=== PATIENT | female | born 1930 | race Caucasian/White ===

== ENCOUNTER → 2018-04-06 | Emergency (ER) | payer MEDICARE, OTHER ==
[~2018-04-06] VITALS: Ht 565.3 cm; Wt 59.0 kg
[~2018-04-06] MED LIST: ALEN40TA2 PO; LISI-600 PO; SIMV5TAB2 PO; SYN0.088T PO; TRIA1TAB5 PO; acetaminophen 325mg tablet PO STA; ibuprofen tablet 400 MG TABLET PO STA
[2018-04-06 13:30] VITALS: BP 144/57
== END | disposition home or self-care (01) ==
LOC: ER 13:27 → EDSEX 13:27
DX: M79.604 Pain in right leg (principal); M25.552 Pain in left hip; M25.551 Pain in right hip; W18.39XA Other fall on same level, initial encounter; Y93.89 Activity, other specified; Y92.89 Other specified places as the place of occurrence of the external cause; Y99.8 Other external cause status
CPT/HCPCS: 72170; 99284

== ENCOUNTER → 2018-04-07 | Emergency (ER) | payer MEDICARE ==
[~2018-04-07] VITALS: Ht 160 cm; Wt 59.0 kg
[~2018-04-07] MED LIST changes: -acetaminophen 325mg tablet PO STA; -ibuprofen tablet 400 MG TABLET PO STA; +ondansetron/PF 4mg/2ml inj IM ONE; +traMADol 50MG tablet PO ONE
[2018-04-07 12:40] LABS: BASOPHILS % (AUTO) 0.3 % (0-1); EOSINOPHILS # (AUTO) 0.1 X10'3 (0-0.9); EOSINOPHILS % (AUTO) 0.5 % (0-6); HEMATOCRIT 33.8 % (35.0-45.0); HEMOGLOBIN 11.7 g/dl (12.0-16.0); LYMPHOCYTES # (AUTO) 1.6 X10'3 (1.1-4.8); LYMPHOCYTES % (AUTO) 11.3 % (21-51); MEAN CORPUSCULAR HEMOGLOBIN 32.6 PG (27.0-31.0); MEAN CORPUSCULAR HGB CONC 34.6 % (33.0-36.5); MEAN CORPUSCULAR VOLUME 94.3 FL (78-98); MONOCYTES # (AUTO) 1.2 X10'3 (0-0.9); MONOCYTES % (AUTO) 8.4 % (2-12); NEUTROPHILS # (AUTO) 11.1 X10'3 (1.8-7.7); NEUTROPHILS % (AUTO) 79.5 % (42-75); PLATELET COUNT 355 X10'3 (140-440); RED BLOOD COUNT 3.59 X10'6 (4.20-5.60); RED CELL DISTRIBUTION WIDTH 13.4 % (11.5-14.5)
[2018-04-07 12:51] LABS: ALANINE AMINOTRANSFERASE 34 U/L (12-78); ALBUMIN 3.5 G/DL (3.4-5.0); ALBUMIN/GLOBULIN RATIO 0.9 (1.1-1.5); ALKALINE PHOSPHATASE 62 IU/L (46-116); ANION GAP 8 (8-16); ASPARTATE AMINO TRANSFERASE 22 U/L (10-37); BILIRUBIN,TOTAL 0.9 MG/DL (0.1-1.0); BLOOD UREA NITROGEN 28 MG/DL (7-18); BUN/CREATININE RATIO 21.1 (6.6-38.0); CALCIUM 11.1 MG/DL (8.5-10.1); CHLORIDE 93 MMOL/L (99-107); CREATININE 1.33 MG/DL (0.40-0.90); GLUCOSE 104 MG/DL (70-104); POTASSIUM 3.8 MMOL/L (3.5-5.1); SODIUM 131 MMOL/L (135-145); TOTAL CARBON DIOXIDE 29.7 MMOL/L (24-32); TOTAL PROTEIN 7.2 G/DL (6.4-8.2); eGFR 38 ML/MIN
[2018-04-07 14:04] LABS: CLARITY,URINE SLIGHTLY CLOUDY (Clear); COLOR,URINE YELLOW (Yellow); GLUCOSE, URINE NEGATIVE (Neg); KETONES,URINE NEGATIVE (Neg); LEUKOCYTE ESTERASE ,URINE NEGATIVE (Neg); NITRITES, URINE NEGATIVE (Neg); OCCULT BLOOD,URINE NEGATIVE (Neg); PROTEIN,URINE NEGATIVE (Neg); UROBILINOGEN,URINE 0.2 E.U/dL (0.2-1.0)
[2018-04-07 14:07] LABS: UA COLLECTION TYPE FOLEY CATH
[2018-04-07 14:36] LABS: AMORPHOUS PHOSPHATES 1+; BACTERIA,URINE NONE SEEN /HPF (Neg); RBC,URINE 0-2 /HPF (0-2); SQUAMOUS EPITHELIAL CELL,UR FEW /LPF (FEW); TRANSITIONAL EPI CELLS,URINE FEW /HPF; WBC,URINE 0-4 /HPF (0-4)
[2018-04-07 17:04] VITALS: BP 140/73
== END | disposition short-term general hospital (02) ==
LOC: ER 10:55
DX: S32.502A Unspecified fracture of left pubis, initial encounter for closed fracture (principal); Z60.2 Problems related to living alone; W18.30XA Fall on same level, unspecified, initial encounter; Y93.89 Activity, other specified; Y92.89 Other specified places as the place of occurrence of the external cause; Y99.8 Other external cause status
CPT/HCPCS: 36415; 51702; 72192; 80053; 81001; 85025; 87070; 96372; 99285; A4315; J2405

== ENCOUNTER 2019-02-22 10:10 | Emergency (ER) | payer MEDICARE ==
[~2019-02-22] VITALS: Ht 160 cm; Wt 74.0 kg
[~2019-02-22 10:10] MED LIST changes: -ondansetron/PF 4mg/2ml inj IM ONE; -traMADol 50MG tablet PO ONE
[2019-02-22 12:02] VITALS: BP 166/78
[2019-02-22] MEDS ORDERED: TRAM50TA2 PO (16:22)
== END 2019-02-22 12:03 | disposition home or self-care (01) ==
LOC: ER 10:10
DX: S40.012A Contusion of left shoulder, initial encounter (principal); M25.552 Pain in left hip; Z98.890 Other specified postprocedural states; Z79.899 Other long term (current) drug therapy; W18.49XA Other slipping, tripping and stumbling without falling, initial encounter; Y93.89 Activity, other specified; Y92.89 Other specified places as the place of occurrence of the external cause; Y99.9 Unspecified external cause status
CPT/HCPCS: 72170; 73030; 99284

== ENCOUNTER 2019-02-22 15:07 | Emergency (ER) | payer MEDICARE ==
[~2019-02-22] VITALS: Ht 160 cm; Wt 74.0 kg
[2019-02-22 15:58] LABS: BASOPHILS % (AUTO) 0.4 % (0-1); EOSINOPHILS # (AUTO) 0.2 X10'3 (0-0.9); EOSINOPHILS % (AUTO) 1.5 % (0-6); HEMATOCRIT 36.9 % (35.0-45.0); HEMOGLOBIN 12.6 g/dl (12.0-16.0); LYMPHOCYTES % (AUTO) 8.8 % (21-51); MEAN CORPUSCULAR HEMOGLOBIN 31.3 PG (27.0-31.0); MEAN CORPUSCULAR HGB CONC 34.3 g/dL (33.0-36.5); MEAN CORPUSCULAR VOLUME 91.4 FL (78-98); MEAN PLATELET VOLUME 6.2 FL (7.4-10.4); MONOCYTES # (AUTO) 1.4 X10'3 (0-0.9); MONOCYTES % (AUTO) 12.7 % (2-12); NEUTROPHILS # (AUTO) 8.7 X10'3 (1.8-7.7); NEUTROPHILS % (AUTO) 76.6 % (42-75); PLATELET COUNT 351 X10'3 (140-440); RED BLOOD COUNT 4.03 X10'6 (4.20-5.60); RED CELL DISTRIBUTION WIDTH 13.5 % (11.5-14.5); WHITE BLOOD COUNT 11.4 X10'3 (4.5-11.0)
[2019-02-22 16:08] LABS: ALANINE AMINOTRANSFERASE 21 U/L (12-78); ALBUMIN 3.4 G/DL (3.4-5.0); ALBUMIN/GLOBULIN RATIO 0.9 (1.1-1.5); ALKALINE PHOSPHATASE 66 IU/L (46-116); ANION GAP 8 (8-16); ASPARTATE AMINO TRANSFERASE 19 U/L (10-37); BILIRUBIN,TOTAL 0.6 MG/DL (0.1-1.0); BLOOD UREA NITROGEN 13 MG/DL (7-18); BUN/CREATININE RATIO 17.6 (6.6-38.0); CALCIUM 9.7 MG/DL (8.5-10.1); CHLORIDE 92 MMOL/L (99-107); CREATININE 0.74 MG/DL (0.40-0.90); GLUCOSE 97 MG/DL (70-104); POTASSIUM 3.3 MMOL/L (3.5-5.1); SODIUM 129 MMOL/L (135-145); TOTAL CARBON DIOXIDE 28.8 MMOL/L (24-32); TOTAL PROTEIN 7.1 G/DL (6.4-8.2); eGFR 74 ML/MIN
[2019-02-22] MEDS ORDERED: normal saline 1000ML IV soln IVB ONE (16:15)
[2019-02-22] MEDS ORDERED: TRAM50TA2 PO (16:22)
[2019-02-22 16:36] LABS: CLARITY,URINE CLEAR (Clear); COLOR,URINE YELLOW (Yellow); GLUCOSE, URINE NEGATIVE (Neg); KETONES,URINE NEGATIVE (Neg); LEUKOCYTE ESTERASE ,URINE NEGATIVE (Neg); NITRITES, URINE NEGATIVE (Neg); OCCULT BLOOD,URINE TRACE-LYSED (Neg); PROTEIN,URINE NEGATIVE (Neg); UROBILINOGEN,URINE 0.2 E.U/dL (0.2-1.0)
[2019-02-22 16:37] LABS: UA COLLECTION TYPE STRAIGHT CATH
[2019-02-22 16:43] LABS: BACTERIA,URINE NONE SEEN /HPF (Neg); MUCUS STRANDS FEW /LPF (Neg); RBC,URINE 0-2 /HPF (0-2); SQUAMOUS EPITHELIAL CELL,UR NONE SEEN /LPF (FEW); WBC,URINE NONE SEEN /HPF (0-4)
--- NOTE | 2019-02-22 16:50 | NUR ---
PT'S DAUGHTER AT BEDSIDE
--- NOTE | 2019-02-22 18:15 | NUR ---
PT DISCHARGED VIA W/C WITH DAUGHTER, ASSISTED TO WAITING CAR. PT TO FOLLOW UP WITH HER PMD, HOME WITH RX FOR PAIN MEDS
[2019-02-22 18:37] VITALS: BP 149/68
== END 2019-02-22 18:39 | disposition home or self-care (01) ==
LOC: ER 15:07
DX: S22.089A Unspecified fracture of T11-T12 vertebra, initial encounter for closed fracture (principal); W18.30XA Fall on same level, unspecified, initial encounter; Y93.89 Activity, other specified; Y92.89 Other specified places as the place of occurrence of the external cause; Y99.8 Other external cause status
CPT/HCPCS: 36415; 70450; 72131; 80053; 81001; 85025; 96360; 96361; 99284; J7030; P9612

== ENCOUNTER 2019-06-28 11:43 | Emergency (ER) | payer MEDICARE ==
[~2019-06-28] VITALS: Ht 157.5 cm; Wt 59.1 kg
--- NOTE | 2019-06-28 12:02 | NUR ---
DR CHANG EVALUATED PT AND WILL CT SCAN HEAD AND NECK
[2019-06-28 13:39] VITALS: BP 116/55
== END 2019-06-28 13:42 | disposition home or self-care (01) ==
LOC: ER 11:44
DX: S00.03XA Contusion of scalp, initial encounter (principal); M54.2 Cervicalgia; F03.90 Unspecified dementia, unspecified severity, without behavioral disturbance, psychotic disturbance, mood disturbance, and anxiety; Z98.890 Other specified postprocedural states; Z88.6 Allergy status to analgesic agent; Z88.5 Allergy status to narcotic agent; Z79.899 Other long term (current) drug therapy; W18.39XA Other fall on same level, initial encounter; Y93.89 Activity, other specified; Y92.89 Other specified places as the place of occurrence of the external cause; Y99.8 Other external cause status
CPT/HCPCS: 70450; 72125; 99284

== ENCOUNTER 2019-07-08 11:07 | Inpatient (IN) | payer MEDICARE ==
[~2019-07-08] VITALS: Ht 167.6 cm; Wt 59.0 kg
[2019-07-08] MEDS ORDERED: normal saline 1000ML IV soln IVB ONE (11:50)
[2019-07-08] MEDS ORDERED: ondansetron/PF 4mg/2ml inj IV ONE (11:50)
[2019-07-08 12:23] LABS: CLARITY,URINE CLEAR (Clear); COLOR,URINE YELLOW (Yellow); GLUCOSE, URINE NEGATIVE (Neg); KETONES,URINE NEGATIVE (Neg); LEUKOCYTE ESTERASE ,URINE NEGATIVE (Neg); NITRITES, URINE NEGATIVE (Neg); OCCULT BLOOD,URINE NEGATIVE (Neg); PH,URINE 6.5 (4.8-8.0); PROTEIN,URINE NEGATIVE (Neg); UROBILINOGEN,URINE 0.2 E.U/dL (0.2-1.0)
[2019-07-08 12:24] LABS: UA COLLECTION TYPE STRAIGHT CATH
[2019-07-08 12:25] LABS: BASOPHILS % (AUTO) 0.3 % (0-1); EOSINOPHILS # (AUTO) 0.3 X10'3 (0-0.9); EOSINOPHILS % (AUTO) 2.6 % (0-6); HEMATOCRIT 35.8 % (35.0-45.0); HEMOGLOBIN 11.9 g/dl (12.0-16.0); LYMPHOCYTES # (AUTO) 1.1 X10'3 (1.1-4.8); LYMPHOCYTES % (AUTO) 8.6 % (21-51); MEAN CORPUSCULAR HEMOGLOBIN 30.6 PG (27.0-31.0); MEAN CORPUSCULAR HGB CONC 33.3 g/dL (33.0-36.5); MEAN CORPUSCULAR VOLUME 91.8 FL (78-98); MEAN PLATELET VOLUME 6.4 FL (7.4-10.4); MONOCYTES # (AUTO) 1.4 X10'3 (0-0.9); MONOCYTES % (AUTO) 11.3 % (2-12); NEUTROPHILS # (AUTO) 9.9 X10'3 (1.8-7.7); NEUTROPHILS % (AUTO) 77.2 % (42-75); PLATELET COUNT 358 X10'3 (140-440); RED BLOOD COUNT 3.89 X10'6 (4.20-5.60); RED CELL DISTRIBUTION WIDTH 14.3 % (11.5-14.5); WHITE BLOOD COUNT 12.8 X10'3 (4.5-11.0)
[2019-07-08] MEDS ORDERED: CefTRIAXone 2gm/D5W 50ml 50 ML IV ONE (12:30)
[2019-07-08 12:35] LABS: ALANINE AMINOTRANSFERASE 15 U/L (12-78); ALBUMIN 2.5 G/DL (3.4-5.0); ALBUMIN/GLOBULIN RATIO 0.6 (1.1-1.5); ALKALINE PHOSPHATASE 70 IU/L (46-116); ANION GAP 11 (8-16); ASPARTATE AMINO TRANSFERASE 15 U/L (10-37); BILIRUBIN,TOTAL 0.4 MG/DL (0.1-1.0); BLOOD UREA NITROGEN 68 MG/DL (7-18); BUN/CREATININE RATIO 27.4 (6.6-38.0); CALCIUM 8.2 MG/DL (8.5-10.1); CHLORIDE 101 MMOL/L (99-107); CREATININE 2.48 MG/DL (0.40-0.90); GLUCOSE 73 MG/DL (70-104); LIPASE 277 U/L (73-393); SODIUM 142 MMOL/L (135-145); TOTAL CARBON DIOXIDE 29.8 MMOL/L (24-32); TOTAL PROTEIN 6.5 G/DL (6.4-8.2); eGFR 18 ML/MIN
[2019-07-08] MEDS ORDERED: potassium Cl 10 mEq/100mL bag IV ONE (13:55)
[2019-07-08] MEDS ORDERED: mag hydrox/Alum hydrox/simeth 30ml oral suspension PO PRN (14:10)
[2019-07-08] MEDS ORDERED: diphenhydrAMINE 50 mg/ml inj IV PRN (14:10)
[2019-07-08] MEDS ORDERED: potassium Cl 20 mEq SR tablet PO PRN (14:10)
[2019-07-08] MEDS: K and/or MAG REPLACEMENT MC SCH (14:10)
[2019-07-08] MEDS ORDERED: magnesium hydroxide 30ml (MOM) UD suspension PO PRN (14:10)
[2019-07-08] MEDS ORDERED: magnesium Cl slow-release 64mg tablet PO PRN (14:10)
[2019-07-08] MEDS ORDERED: metoclopramide 5 mg/ml inj IV PRN (14:10)
[2019-07-08] MEDS ORDERED: bisacodyl 10mg suppository rectal RC PRN (14:10)
[2019-07-08] MEDS ORDERED: diphenhydrAMINE 25mg capsule PO PRN (14:10)
[2019-07-08] MEDS ORDERED: ondansetron/PF 4mg/2ml inj IV PRN (14:10)
[2019-07-08] MEDS ORDERED: magnesium 2GM in 50ml NS 50 ML IV PRN (14:10)
[2019-07-08] MEDS ORDERED: magnesium 4gm in 100ml NS 100 ML IV PRN (14:10)
[2019-07-08] MEDS ORDERED: OMEP-50 PO (14:13)
[2019-07-08] MEDS ORDERED: FURO20TA4 PO (14:13)
[2019-07-08] MEDS ORDERED: LEVO75TA7 PO (14:13)
--- NOTE | 2019-07-08 14:15 | NUR ---
assumed care of pt from Marichuy JUAREZ, first contact with pt, pt is up to bedside commode with min assist,
[2019-07-08] MEDS ORDERED: SERT100T10 PO (14:19)
[2019-07-08] MEDS ORDERED: CHOL100046 PO (14:19)
[2019-07-08] MEDS ORDERED: TRIA1TAB3 PO (14:19)
[2019-07-08] MEDS ORDERED: POTA20LI5 PO (14:19)
[2019-07-08] MEDS ORDERED: SENN-162 PO (14:19)
[2019-07-08] MEDS ORDERED: MULT-933 PO (14:19)
[2019-07-08] MEDS ORDERED: DOCU100C41 PO (14:19)
[2019-07-08] MEDS ORDERED: TRAM50TA2 PO (14:19)
[2019-07-08] MEDS ORDERED: traMADol 50MG tablet PO PRN (14:25)
[2019-07-08] MEDS: normal saline 1000ml 1,000 ML IV SCH ×2 (14:28→23:35)
[2019-07-08] MEDS: potassium Cl 20 mEq SR tablet PO ONE ×2 (14:28→14:57)
--- NOTE | 2019-07-08 14:41 | NUR ---
per daughter pt is has difficulty swallowing and now needs to take potassium liquid, unable to swallow pills,
--- NOTE | 2019-07-08 15:05 | NUR ---
pt had small soft brown/yellow bowel movement and yellow urine, 800ml, out, no skin breakdown to back/coccyx, assisted pt back to bed, gave pt clean depends and warm blanket
[2019-07-08 15:16] LABS: HEMOGLOBIN A1C 5.9 % (4.5-6.2)
--- NOTE | 2019-07-08 17:37 | NUR ---
Pt.'s daughter said pt. tried to have a bowel movement in the ER this AM and was unable to. she strained for some time. Pt. c/o lower abd. pain on palpation. Addendum: 07/08/19 at 1742 by Mellsia Lezama RN Amended: Links added.
[2019-07-08 17:42] VITALS: BP 121/42
--- NOTE | 2019-07-08 17:48 | NUR ---
PAGER ID: [phone] MESSAGE: [id number] Nikia Juarez Pt. daughter states pt. is have troubles swallowing. Do you want pt NPO for BSS/ST eval? Pt also states constipation. med. req. needs to be addressed. Thank you - surgical
--- NOTE | 2019-07-08 18:30 | NUR ---
Pt. in bed, comfortable with no needs at this time. c/o being cold, heater turned on, several blankets provided. Fall risk r/t pt. fell last week at [facility]. CNAs aware to transfer pt. to bed alarm bed. Report given to Susana Urban RN oriented.
[2019-07-08 20:00] VITALS: BP 105/51
[2019-07-08] MEDS: docusate sod 100mg capsule PO SCH (21:00)
[2019-07-08] MEDS: sennosides 8.6mg tablet PO SCH (21:00)
[2019-07-08] MEDS ORDERED: temazepam 15mg capsule PO PRN (21:00)
[2019-07-08] MEDS: potassium CL 10mEq/100ml bag 100 ML IV PRN ×3 (21:29→23:36)
[2019-07-08] MEDS: heparin, porcine 5000 units/ml vial SQ SCH (21:32)
[2019-07-09] VITALS: BP 118/55
--- NOTE | 2019-07-09 00:22 | NUR ---
Patient continues to complain of having to go pee. Patient has gotten up 4 times with assistance, unsuccessful. Patient bladder scan show 540ml in bladder. Dr. Mac order X1 straight cath now.
--- NOTE | 2019-07-09 01:30 | NUR ---
Dr. Regalado notified of patient's unsuccessful straight cath attempts of 4 times by Primary nurse Susana RN, Experienced nurse Bhavya RN, and Charge nurse. Patient was able to void during straight cath on to the dry flow 2 times. Patient bladder scan show 540ml and Sabine was notified of the residual in bladder. Sabine does not recommend a coude. Is aware of the residual. For nurse to continue to monitor bladder. No additional order received, stated it might resolve later in the day.
[2019-07-09] MEDS: potassium CL 10mEq/100ml bag 100 ML IV PRN ×6 (01:54→15:45)
--- NOTE | 2019-07-09 03:50 | NUR ---
Patient bladder scan again to recheck, Patient voiding frequently. Bladder scan show 570ml. Continue with care and to monitor.
--- NOTE | 2019-07-09 04:54 | NUR ---
Patient had another large incontinent void.
[2019-07-09 05:35] LABS: BASOPHILS # (AUTO) 0.1 X10'3 (0-0.2); BASOPHILS % (AUTO) 0.8 % (0-1); EOSINOPHILS # (AUTO) 0.5 X10'3 (0-0.9); EOSINOPHILS % (AUTO) 3.8 % (0-6); HEMATOCRIT 34.4 % (35.0-45.0); HEMOGLOBIN 11.7 g/dl (12.0-16.0); LYMPHOCYTES # (AUTO) 1.2 X10'3 (1.1-4.8); LYMPHOCYTES % (AUTO) 9.9 % (21-51); MEAN CORPUSCULAR HEMOGLOBIN 30.8 PG (27.0-31.0); MEAN CORPUSCULAR HGB CONC 33.9 g/dL (33.0-36.5); MEAN PLATELET VOLUME 7.1 FL (7.4-10.4); MONOCYTES # (AUTO) 1.3 X10'3 (0-0.9); MONOCYTES % (AUTO) 10.4 % (2-12); NEUTROPHILS # (AUTO) 9.4 X10'3 (1.8-7.7); NEUTROPHILS % (AUTO) 75.1 % (42-75); PLATELET COUNT 366 X10'3 (140-440); RED BLOOD COUNT 3.78 X10'6 (4.20-5.60); RED CELL DISTRIBUTION WIDTH 14.3 % (11.5-14.5); WHITE BLOOD COUNT 12.5 X10'3 (4.5-11.0)
[2019-07-09 05:57] LABS: ALANINE AMINOTRANSFERASE 17 U/L (12-78); ALBUMIN 2.6 G/DL (3.4-5.0); ALBUMIN/GLOBULIN RATIO 0.7 (1.1-1.5); ALKALINE PHOSPHATASE 72 IU/L (46-116); ANION GAP 11 (8-16); ASPARTATE AMINO TRANSFERASE 27 U/L (10-37); BILIRUBIN,TOTAL 0.4 MG/DL (0.1-1.0); BLOOD UREA NITROGEN 56 MG/DL (7-18); BUN/CREATININE RATIO 26.3 (6.6-38.0); CALCIUM 8.6 MG/DL (8.5-10.1); CHLORIDE 102 MMOL/L (99-107); CREATININE 2.13 MG/DL (0.40-0.90); GLUCOSE 83 MG/DL (70-104); MAGNESIUM 1.9 MG/DL (1.5-2.4); PHOSPHORUS 2.7 MG/DL (2.3-4.5); SODIUM 139 MMOL/L (135-145); TOTAL CARBON DIOXIDE 26.5 MMOL/L (24-32); TOTAL PROTEIN 6.6 G/DL (6.4-8.2); eGFR 22 ML/MIN
[2019-07-09 05:58] LABS: POTASSIUM 3.3 MMOL/L (3.5-5.1)
[2019-07-09] MEDS: normal saline 1000ml 1,000 ML IV SCH ×3 (06:10→18:32)
--- NOTE | 2019-07-09 07:05 | NUR ---
Patient in room [facility] 357. I have received report from LARRY Meza and had the opportunity to ask questions and assume patient care.
--- NOTE | 2019-07-09 07:05 | NUR ---
Patient had unwitnessed fall, heard pt yell and walked into room to see patient on floor laying on right side. PCT reported pt was placed on commode at 0700. Patients roommate stated she got off commode and started walking towards the bathroom and then fell. Patient stated, "I dont feel any pain or injuries anywhere," when asked. Patient reported she did hit her head on the floor. Assisted patient back to bed and assessed patient for injuries. No injuries seen. VS stable. Patient had nonskid socks present and fall risk band on prior to fall. Patient currently has PT eval ordered. Charge nurse notified. Will page regarding fall.
--- NOTE | 2019-07-09 07:45 | NUR ---
Paged Dr. Olvera regarding urinary retention bladder scan of 568ml and fall. Awaiting call back.
[2019-07-09 07:59] VITALS: BP 123/51
[2019-07-09] MEDS: heparin, porcine 5000 units/ml vial SQ SCH ×2 (08:00→20:09)
[2019-07-09] MEDS: K and/or MAG REPLACEMENT MC SCH (08:00)
[2019-07-09] MEDS: sertraline 50mg tablet PO SCH (08:00)
[2019-07-09] MEDS: vitamin D (cholecalciferol) 1,000 unit tablet PO SCH (08:00)
[2019-07-09] MEDS: multivitamins, therapeutics tablet PO SCH (08:00)
[2019-07-09] MEDS: levoTHYROXINE 75mcg tablet PO SCH (08:00)
[2019-07-09 08:01] VITALS: BP 113/51
--- NOTE | 2019-07-09 08:25 | NUR ---
Dr. Olvera paged again regarding urinary retention and fall. Awaiting call back.
--- NOTE | 2019-07-09 08:30 | NUR ---
MD aware of fall and urinary retention, MD ordered CT of head and miller per protocol for retention.
--- NOTE | 2019-07-09 09:00 | NUR ---
Attempted to place F/C and pt is refusing at this time. Explained importance of F/C and pt is still refusing. Pt also refusing to get in w/c to go for CT.
--- NOTE | 2019-07-09 09:33 | NUR ---
Patient daughter Fina made aware of pts fall and was updated on pts information. Fina stated she is coming by later with medication list and POA paperwork.
--- NOTE | 2019-07-09 09:44 | NUR ---
paged regarding pt refusing F/C and CT. Awaiting callback.
[2019-07-09] MEDS ORDERED: LORazepam 2 mg/ml vial IV ONE ×2 (09:45→10:25)
--- NOTE | 2019-07-09 10:45 | NUR ---
16 Persian Young catheter placed by student nurse Geetha without incidence. Clinical instructor present with both primary RNs assisting at bedside. Tubing secured to leg, draining to gravity. Patient tolerated procedure well. Urine output 600ml after insertion. Will continue to monitor.
--- NOTE | 2019-07-09 12:12 | NUR ---
Page about CT results awaiting call back
[2019-07-09 12:21] VITALS: BP 112/60
[2019-07-09 17:15] LABS: TOTAL PROTEIN,URINE RANDOM 22.4 MG/DL
--- NOTE | 2019-07-09 18:30 | NUR ---
Patient in room [facility] 358. I have received report from Fadi JUAREZ and had the opportunity to ask questions and assume patient care.
--- NOTE | 2019-07-09 18:39 | NUR ---
Problems reprioritized. Patient report given, questions answered & plan of care reviewed with LARRY DIOP.
[2019-07-09 19:00] VITALS: BP 121/66
[2019-07-09] MEDS: docusate sod 100mg capsule PO SCH (20:09)
[2019-07-09] MEDS: sennosides 8.6mg tablet PO SCH (20:09)
[2019-07-10] VITALS: BP 101/67
[2019-07-10] MEDS: normal saline 1000ml 1,000 ML IV SCH ×2 (02:06→14:48)
--- NOTE | 2019-07-10 04:17 | NUR ---
Patient self-removed IV 2x this shift. The first removal, 2x nurses got IV in after 3x attempts. The second removal, 3x nurses got IV after 5x attempts. Patient is monitored closely with sleeve on arm.
--- NOTE | 2019-07-10 06:35 | NUR ---
Problems reprioritized. Patient report given, questions answered & plan of care reviewed with Mellisa gonzales.
[2019-07-10 07:30] LABS: BASOPHILS # (AUTO) 0.1 X10'3 (0-0.2); BASOPHILS % (AUTO) 0.7 % (0-1); EOSINOPHILS # (AUTO) 0.6 X10'3 (0-0.9); EOSINOPHILS % (AUTO) 4.9 % (0-6); HEMATOCRIT 34.8 % (35.0-45.0); HEMOGLOBIN 11.8 g/dl (12.0-16.0); LYMPHOCYTES # (AUTO) 1.2 X10'3 (1.1-4.8); LYMPHOCYTES % (AUTO) 10.2 % (21-51); MEAN CORPUSCULAR HEMOGLOBIN 31.2 PG (27.0-31.0); MEAN CORPUSCULAR HGB CONC 34.1 g/dL (33.0-36.5); MEAN CORPUSCULAR VOLUME 91.5 FL (78-98); MEAN PLATELET VOLUME 7.2 FL (7.4-10.4); MONOCYTES # (AUTO) 1.1 X10'3 (0-0.9); NEUTROPHILS # (AUTO) 8.9 X10'3 (1.8-7.7); NEUTROPHILS % (AUTO) 75.2 % (42-75); PLATELET COUNT 348 X10'3 (140-440); RED CELL DISTRIBUTION WIDTH 14.5 % (11.5-14.5); WHITE BLOOD COUNT 11.8 X10'3 (4.5-11.0)
[2019-07-10 07:48] LABS: ALANINE AMINOTRANSFERASE 19 U/L (12-78); ALBUMIN 2.5 G/DL (3.4-5.0); ALBUMIN/GLOBULIN RATIO 0.6 (1.1-1.5); ALKALINE PHOSPHATASE 70 IU/L (46-116); ANION GAP 12 (8-16); ASPARTATE AMINO TRANSFERASE 23 U/L (10-37); BILIRUBIN,TOTAL 0.5 MG/DL (0.1-1.0); BLOOD UREA NITROGEN 39 MG/DL (7-18); BUN/CREATININE RATIO 24.1 (6.6-38.0); CALCIUM 8.9 MG/DL (8.5-10.1); CHLORIDE 104 MMOL/L (99-107); CREATININE 1.62 MG/DL (0.40-0.90); GLUCOSE 67 MG/DL (70-104); MAGNESIUM 1.8 MG/DL (1.5-2.4); PHOSPHORUS 3.1 MG/DL (2.3-4.5); SODIUM 142 MMOL/L (135-145); TOTAL CARBON DIOXIDE 25.8 MMOL/L (24-32); TOTAL PROTEIN 6.5 G/DL (6.4-8.2); eGFR 30 ML/MIN
[2019-07-10 07:52] LABS: POTASSIUM 2.7 MMOL/L (3.5-5.1)
--- NOTE | 2019-07-10 07:52 | NUR ---
Notified Fina Azul RN (break relief RN for LARRY Pak) of pt's K+= 2.7, per lab.
--- NOTE | 2019-07-10 08:32 | NUR ---
MD ESPARZA NOTIFIED R/T CRITICAL POTASSIUM LAB BY CHARGE LIOR. WILL REPLACE PER ORDER/PROTOCOL.
[2019-07-10] MEDS: K and/or MAG REPLACEMENT MC SCH (08:35)
[2019-07-10] MEDS: sertraline 50mg tablet PO SCH (08:36)
[2019-07-10] MEDS: vitamin D (cholecalciferol) 1,000 unit tablet PO SCH (08:37)
[2019-07-10] MEDS: heparin, porcine 5000 units/ml vial SQ SCH ×2 (08:37→19:12)
[2019-07-10] MEDS: levoTHYROXINE 75mcg tablet PO SCH (08:37)
[2019-07-10] MEDS: multivitamins, therapeutics tablet PO SCH (08:37)
[2019-07-10] MEDS: potassium Cl 20 mEq SR tablet PO PRN ×3 (08:38→19:12)
[2019-07-10 10:09] VITALS: BP 126/61
[2019-07-10 11:56] VITALS: BP 104/55
--- NOTE | 2019-07-10 12:00 | NUR ---
PT F/C REMOVED PER ORDER. PT. TOLERATED PROCEDURE WELL. WILL CONT. TO MONITOR BOWEL AND BLADDER HABITS ON MY SHIFT.
--- NOTE | 2019-07-10 14:40 | NUR ---
NO VOID AT THIS TIME. PT. BLADDER SCANNED- 165 ML FOUND.
--- NOTE | 2019-07-10 16:24 | NUR ---
Bladder scanned pt. 287ml in bladder. ACCOUNT SERVICE ASSOCIATE in room attempting to have pt. urinate on bedside commode. Will cont. to monitor on my shift.
--- NOTE | 2019-07-10 17:51 | NUR ---
RES. VOID SCAN AFTER 150 ML VOID. 91 ML RESIDUAL IN BLADDER.
--- NOTE | 2019-07-10 17:54 | NUR ---
PAGER ID: [phone] MESSAGE: Nikia FONTAINE [id number] PT. VOIDED 150 ML AFTER FC REMOVAL AT NOON, RES VOID 91 ML. [facility]
--- NOTE | 2019-07-10 18:24 | NUR ---
PT. IN ROOM RESTING, RISE AND FALL OF CHEST, COMFORTABLE AT THIS TIME. Problems reprioritized. Patient report given, questions answered & plan of care reviewed with JADON JUAREZ.
[2019-07-10 19:00] VITALS: BP 159/72
[2019-07-10] MEDS: docusate sod 100mg capsule PO SCH (21:00)
[2019-07-10] MEDS: sennosides 8.6mg tablet PO SCH (21:00)
[2019-07-11] VITALS: BP 116/53
[2019-07-11] MEDS: normal saline 1000ml 1,000 ML IV SCH (00:52)
--- NOTE | 2019-07-11 06:31 | NUR ---
Problems reprioritized. Patient report given, questions answered & plan of care reviewed with Sonya RN.
[2019-07-11 06:41] LABS: BASOPHILS # (AUTO) 0.1 X10'3 (0-0.2); BASOPHILS % (AUTO) 0.8 % (0-1); EOSINOPHILS # (AUTO) 0.7 X10'3 (0-0.9); EOSINOPHILS % (AUTO) 6.4 % (0-6); HEMATOCRIT 32.6 % (35.0-45.0); HEMOGLOBIN 11.2 g/dl (12.0-16.0); LYMPHOCYTES % (AUTO) 9.9 % (21-51); MEAN CORPUSCULAR HEMOGLOBIN 31.5 PG (27.0-31.0); MEAN CORPUSCULAR HGB CONC 34.2 g/dL (33.0-36.5); MEAN CORPUSCULAR VOLUME 92.1 FL (78-98); MEAN PLATELET VOLUME 7.1 FL (7.4-10.4); MONOCYTES % (AUTO) 9.6 % (2-12); NEUTROPHILS # (AUTO) 7.6 X10'3 (1.8-7.7); NEUTROPHILS % (AUTO) 73.3 % (42-75); PLATELET COUNT 334 X10'3 (140-440); RED BLOOD COUNT 3.54 X10'6 (4.20-5.60); RED CELL DISTRIBUTION WIDTH 14.5 % (11.5-14.5); WHITE BLOOD COUNT 10.4 X10'3 (4.5-11.0)
[2019-07-11 07:12] LABS: ALANINE AMINOTRANSFERASE 16 U/L (12-78); ALBUMIN 2.2 G/DL (3.4-5.0); ALBUMIN/GLOBULIN RATIO 0.6 (1.1-1.5); ALKALINE PHOSPHATASE 62 IU/L (46-116); ANION GAP 10 (8-16); ASPARTATE AMINO TRANSFERASE 24 U/L (10-37); BILIRUBIN,TOTAL 0.3 MG/DL (0.1-1.0); BLOOD UREA NITROGEN 28 MG/DL (7-18); CALCIUM 8.6 MG/DL (8.5-10.1); CHLORIDE 114 MMOL/L (99-107); GLUCOSE 78 MG/DL (70-104); MAGNESIUM 1.5 MG/DL (1.5-2.4); PHOSPHORUS 2.4 MG/DL (2.3-4.5); POTASSIUM 3.8 MMOL/L (3.5-5.1); SODIUM 146 MMOL/L (135-145); TOTAL CARBON DIOXIDE 22.1 MMOL/L (24-32); TOTAL PROTEIN 5.7 G/DL (6.4-8.2); eGFR 35 ML/MIN
[2019-07-11 08:00] VITALS: BP 132/59
[2019-07-11] MEDS: K and/or MAG REPLACEMENT MC SCH (08:00)
[2019-07-11] MEDS: heparin, porcine 5000 units/ml vial SQ SCH (08:00)
[2019-07-11] MEDS: multivitamins, therapeutics tablet PO SCH (09:36)
[2019-07-11] MEDS: levoTHYROXINE 75mcg tablet PO SCH (09:36)
[2019-07-11] MEDS: vitamin D (cholecalciferol) 1,000 unit tablet PO SCH (09:37)
[2019-07-11] MEDS: sertraline 50mg tablet PO SCH (09:37)
[2019-07-11] MEDS ORDERED: AMLO5TAB4 PO (10:13)
[2019-07-11 12:05] VITALS: BP 104/51
== END 2019-07-11 13:40 | DRG 682 ==
LOC: ER 11:07 → SUR 3N 16:52
PROVIDERS: ADMIT Family Medicine; ATTEND Family Medicine
DX: N17.0 Acute kidney failure with tubular necrosis (principal); R65.11 Systemic inflammatory response syndrome (SIRS) of non-infectious origin with acute organ dysfunction; N10 Acute pyelonephritis; E86.0 Dehydration; E87.6 Hypokalemia; E03.9 Hypothyroidism, unspecified; E78.5 Hyperlipidemia, unspecified; E87.5 Hyperkalemia; N18.9 Chronic kidney disease, unspecified; Z66 Do not resuscitate; I12.9 Hypertensive chronic kidney disease with stage 1 through stage 4 chronic kidney disease, or unspecified chronic kidney disease; R33.9 Retention of urine, unspecified; W18.39XA Other fall on same level, initial encounter; Y93.89 Activity, other specified; Z88.8 Allergy status to other drugs, medicaments and biological substances; Z88.0 Allergy status to penicillin; Z88.6 Allergy status to analgesic agent; Z88.1 Allergy status to other antibiotic agents; Z79.890 Hormone replacement therapy; Z79.899 Other long term (current) drug therapy; Y92.89 Other specified places as the place of occurrence of the external cause; Y99.8 Other external cause status
CPT/HCPCS: 36415; 70450; 71045; 74018; 76775; 80053; 81003; 82570; 83036; 83605; 83690; 83735; 84100; 84132; 84145; 84156; 84300; 84443; 85025; 87040; 87081; 87207; 92508; 92616; 96361; 96365; 96366; 96375; 97116; 97161; 97530; 99285; G0378; J0696; J1644; J2060; J2405; J3480; J7030

== ENCOUNTER 2019-07-15 12:56 | Emergency (ER) | payer MEDICARE ==
[~2019-07-15] VITALS: Ht 165.1 cm; Wt 72.0 kg
[~2019-07-15 12:56] MED LIST changes: -ALEN40TA2 PO; +AMLO5TAB4 PO; +CHOL100046 PO; +DOCU100C41 PO; +LEVO75TA7 PO; -LISI-600 PO; +MULT-933 PO; +POTA20LI5 PO; +SENN-162 PO; +SERT100T10 PO; -SIMV5TAB2 PO; -SYN0.088T PO; +TRAM50TA2 PO; -TRIA1TAB5 PO
[2019-07-15] MEDS ORDERED: normal saline 1000ML IV soln IVB ONE (13:05)
[2019-07-15 14:09] LABS: BASOPHILS # (AUTO) 0.1 X10'3 (0-0.2); BASOPHILS % (AUTO) 0.7 % (0-1); EOSINOPHILS # (AUTO) 0.6 X10'3 (0-0.9); HEMATOCRIT 34.6 % (35.0-45.0); HEMOGLOBIN 11.7 g/dl (12.0-16.0); LYMPHOCYTES # (AUTO) 1.2 X10'3 (1.1-4.8); LYMPHOCYTES % (AUTO) 12.2 % (21-51); MEAN CORPUSCULAR HEMOGLOBIN 30.8 PG (27.0-31.0); MEAN CORPUSCULAR HGB CONC 33.8 g/dL (33.0-36.5); MEAN CORPUSCULAR VOLUME 91.1 FL (78-98); MEAN PLATELET VOLUME 6.9 FL (7.4-10.4); MONOCYTES # (AUTO) 1.2 X10'3 (0-0.9); NEUTROPHILS % (AUTO) 69.1 % (42-75); PLATELET COUNT 352 X10'3 (140-440); RED CELL DISTRIBUTION WIDTH 14.6 % (11.5-14.5); WHITE BLOOD COUNT 10.1 X10'3 (4.5-11.0)
[2019-07-15 14:31] LABS: ALANINE AMINOTRANSFERASE 21 U/L (12-78); ALBUMIN 2.8 G/DL (3.4-5.0); ALBUMIN/GLOBULIN RATIO 0.7 (1.1-1.5); ALKALINE PHOSPHATASE 79 IU/L (46-116); ANION GAP 10 (8-16); ASPARTATE AMINO TRANSFERASE 24 U/L (10-37); BILIRUBIN,TOTAL 0.5 MG/DL (0.1-1.0); BLOOD UREA NITROGEN 19 MG/DL (7-18); BUN/CREATININE RATIO 14.4 (6.6-38.0); CALCIUM 9.1 MG/DL (8.5-10.1); CHLORIDE 105 MMOL/L (99-107); CREATININE 1.32 MG/DL (0.40-0.90); GLUCOSE 88 MG/DL (70-104); SODIUM 141 MMOL/L (135-145); TOTAL CARBON DIOXIDE 25.6 MMOL/L (24-32); TOTAL PROTEIN 6.8 G/DL (6.4-8.2); eGFR 38 ML/MIN
[2019-07-15 14:43] LABS: POTASSIUM 2.8 MMOL/L (3.5-5.1)
--- NOTE | 2019-07-15 14:45 | NUR ---
KEMAR RN, DR CHANG AWARE OF K+ 2.8
[2019-07-15] MEDS ORDERED: POTASSIUM BICARB 20meq eff tab 20 MEQ TABLET.EFF PO ONE (14:50)
[2019-07-15] MEDS ORDERED: POTA20TA19 PO (15:03)
[2019-07-15 15:39] VITALS: BP 119/74
== END 2019-07-15 15:40 | disposition home or self-care (01) ==
LOC: ER 12:57
DX: E87.6 Hypokalemia (principal); R11.2 Nausea with vomiting, unspecified; R41.0 Disorientation, unspecified; F03.90 Unspecified dementia, unspecified severity, without behavioral disturbance, psychotic disturbance, mood disturbance, and anxiety; I10 Essential (primary) hypertension; Z98.890 Other specified postprocedural states; Z79.899 Other long term (current) drug therapy; Z88.0 Allergy status to penicillin; Z88.6 Allergy status to analgesic agent; Z88.5 Allergy status to narcotic agent; Z88.1 Allergy status to other antibiotic agents; W19.XXXA Unspecified fall, initial encounter; Y93.89 Activity, other specified; Y92.091 Bathroom in other non-institutional residence as the place of occurrence of the external cause; Y99.9 Unspecified external cause status
CPT/HCPCS: 36415; 70450; 80053; 85025; 99284; J7040